=== PATIENT | male | born 1940 | race Caucasian/White ===

== ENCOUNTER 2017-09-14 13:13 | Inpatient (IN) | payer OTHER, MEDICARE ==
[~2017-09-14] VITALS: Ht 154.9 cm; Wt 100.0 kg
[~2017-09-14 13:13] MED LIST: BUSP10TA11 PO; CARV25TA PO; COU5T PO; GLIP-126 PO; LISI10TA4 PO; ZOLP10TA5 PO
[2017-09-14] MEDS ORDERED: normal saline 1000ML IV soln IV ONE (13:40)
[2017-09-14 14:01] LABS: BASOPHILS % (AUTO) 0.1 % (0-1); EOSINOPHILS % (AUTO) 0.5 % (0-6); HEMATOCRIT 42.9 % (42.0-52.0); HEMOGLOBIN 14.8 g/dl (14.0-17.9); LYMPHOCYTES # (AUTO) 0.6 X10'3 (1.1-4.8); LYMPHOCYTES % (AUTO) 8.8 % (21-51); MEAN CORPUSCULAR HEMOGLOBIN 31.9 PG (27.0-31.0); MEAN CORPUSCULAR HGB CONC 34.4 % (33.0-36.5); MEAN CORPUSCULAR VOLUME 92.7 FL (78-98); MEAN PLATELET VOLUME 7.4 FL (7.4-10.4); MONOCYTES # (AUTO) 0.5 X10'3 (0-0.9); MONOCYTES % (AUTO) 7.2 % (2-12); NEUTROPHILS % (AUTO) 83.4 % (42-75); PLATELET COUNT 111 X10'3 (140-440); RED BLOOD COUNT 4.63 X10'6 (4.70-6.10); WHITE BLOOD COUNT 7.2 X10'3 (4.5-11.0)
[2017-09-14 14:12] LABS: INR 1.2 INR; PARTIAL THROMBOPLASTIN TIME 31 SECONDS (22-32); PROTHROMBIN TIME 12.4 SECONDS (9.0-12.0)
[2017-09-14 14:24] LABS: ALANINE AMINOTRANSFERASE 17 U/L (12-78); ALBUMIN 3.9 G/DL (3.4-5.0); ALBUMIN/GLOBULIN RATIO 1.1 (1.1-1.5); ALKALINE PHOSPHATASE 77 IU/L (46-116); ANION GAP 8 (8-16); ASPARTATE AMINO TRANSFERASE 18 U/L (10-37); BILIRUBIN,TOTAL 3.7 MG/DL (0.1-1.0); BLOOD UREA NITROGEN 17 MG/DL (7-18); BUN/CREATININE RATIO 12.1 (5.4-32.0); CALCIUM 7.8 MG/DL (8.5-10.1); CHLORIDE 95 MMOL/L (99-107); CREATININE 1.41 MG/DL (0.60-1.10); MAGNESIUM 1.9 MG/DL (1.5-2.4); POTASSIUM 4.9 MMOL/L (3.5-5.1); SODIUM 128 MMOL/L (135-145); TOTAL CARBON DIOXIDE 24.7 MMOL/L (24-32); TOTAL PROTEIN 7.4 G/DL (6.4-8.2); eGFR 49 ML/MIN
[2017-09-14 14:25] LABS: GLUCOSE 197 MG/DL (70-104)
[2017-09-14] MEDS ORDERED: normal saline 1000ml 1,000 ML IV ONE ×2 (15:20)
[2017-09-14 15:42] LABS: CLARITY,URINE CLEAR (Clear); COLOR,URINE YELLOW (Yellow); GLUCOSE, URINE 100 mg/dl (Neg); KETONES,URINE 15 mg/dl (Neg); LEUKOCYTE ESTERASE ,URINE NEGATIVE (Neg); NITRITES, URINE NEGATIVE (Neg); OCCULT BLOOD,URINE LARGE (Neg); PH,URINE 6.5 (4.8-8.0); PROTEIN,URINE 100 mg/dl (Neg); UA COLLECTION TYPE CLN CATCH MIDSTREAM
[2017-09-14 15:48] LABS: BACTERIA,URINE FEW /HPF (Neg); HYALINE CASTS 0-3 /LPF (NEGATIVE); MUCUS STRANDS FEW /LPF (Neg); RBC,URINE 50-100 /HPF (0-2); SQUAMOUS EPITHELIAL CELL,UR FEW /LPF (FEW); TRANSITIONAL EPI CELLS,URINE FEW /HPF; WBC,URINE 0-4 /HPF (0-4)
[2017-09-14] MEDS ORDERED: ipratropium/albuterol 3ml nebule NEB ONE ×2 (16:05→18:20)
[2017-09-14] MEDS ORDERED: CefTRIAXone/D5W-Rocephin 1gm 50 ML IV ONE (16:20)
[2017-09-14] MEDS ORDERED: non-formulary drug (Zolpidem Tartrate* (Ambien*) 1 TAB) PO PRN (17:40)
[2017-09-14] MEDS ORDERED: dextrose ORAL solution 15 GM/59 ML bottle PO PRN ×2 (17:45)
[2017-09-14] MEDS ORDERED: potassium Cl 40MEQ/NS 500ml 500 ML IV PRN ×2 (17:45)
[2017-09-14] MEDS ORDERED: ondansetron/PF 4mg/2ml inj IV PRN (17:45)
[2017-09-14] MEDS ORDERED: MORPHINE 2MG in 2ml NS syringe IV PRN (17:45)
[2017-09-14] MEDS ORDERED: MESSAGE TO PHARMACY PO ONE (17:45)
[2017-09-14] MEDS ORDERED: glucagon, human recombinant 1mg kit SUBCUT PRN (17:45)
[2017-09-14] MEDS ORDERED: potassium Cl 20 mEq SR tablet PO PRN ×2 (17:45)
[2017-09-14] MEDS ORDERED: magnesium hydroxide 30ml (MOM) UD suspension PO PRN (17:45)
[2017-09-14] MEDS ORDERED: magnesium 2GM in 50ml NS 50 ML IV PRN (17:45)
[2017-09-14] MEDS ORDERED: zolpidem 5mg tablet PO PRN (17:45)
[2017-09-14] MEDS ORDERED: dextrose 50%-water 50ml dispensing syringe IV PRN ×2 (17:45)
[2017-09-14] MEDS ORDERED: acetaminophen 325mg tablet PO PRN (17:45)
[2017-09-14] MEDS ORDERED: magnesium Cl slow-release 64mg tablet PO PRN (17:45)
[2017-09-14] MEDS ORDERED: HYDROcodone/acetaminophen 5mg/325mg tablet PO PRN (17:45)
[2017-09-14] MEDS ORDERED: mag hydrox/Alum hydrox/simeth 30ml oral suspension PO PRN (17:45)
[2017-09-14] MEDS ORDERED: magnesium 4gm in 100ml NS 100 ML IV PRN (17:45)
[2017-09-14] MEDS ORDERED: methylPREDNISolone sod succ 125mg/2ml vial IV ONE (19:05)
[2017-09-14] MEDS: carVEDilol 12.5mg tablet PO SCH (19:39)
[2017-09-14] MEDS: busPIRone 15mg tablet PO SCH (19:39)
[2017-09-14] MEDS ORDERED: non-formulary drug (Carvedilol (Coreg) 1 TAB) PO SCH (20:00)
[2017-09-14] MEDS ORDERED: BUSPIRONE HCL PO SCH (20:00)
[2017-09-14] MEDS: insulin glargine (Lantus) pen - multi-dose SQ SCH (21:00)
[2017-09-14] MEDS ORDERED: temazepam 15mg capsule PO PRN (21:00)
[2017-09-14 21:24] LABS: HEMOGLOBIN A1C 6.6 % (4.5-6.2)
[2017-09-14] MEDS: albuterol 2.5 MG/3 ML nebule NEB PRN (23:12)
[2017-09-15 02:02] LABS: INR 1.2 INR; PROTHROMBIN TIME 12.4 SECONDS (9.0-12.0)
[2017-09-15 02:05] LABS: BASOPHILS % (AUTO) 0.2 % (0-1); EOSINOPHILS % (AUTO) 0 % (0-6); HEMATOCRIT 40.2 % (42.0-52.0); HEMOGLOBIN 13.9 g/dl (14.0-17.9); LYMPHOCYTES # (AUTO) 0.6 X10'3 (1.1-4.8); LYMPHOCYTES % (AUTO) 9.6 % (21-51); MEAN CORPUSCULAR HEMOGLOBIN 32.5 PG (27.0-31.0); MEAN CORPUSCULAR HGB CONC 34.7 % (33.0-36.5); MEAN CORPUSCULAR VOLUME 93.7 FL (78-98); MEAN PLATELET VOLUME 7.6 FL (7.4-10.4); MONOCYTES # (AUTO) 0.2 X10'3 (0-0.9); MONOCYTES % (AUTO) 2.8 % (2-12); NEUTROPHILS # (AUTO) 5.6 X10'3 (1.8-7.7); NEUTROPHILS % (AUTO) 87.4 % (42-75); PLATELET COUNT 102 X10'3 (140-440); RED BLOOD COUNT 4.29 X10'6 (4.70-6.10); RED CELL DISTRIBUTION WIDTH 13.6 % (11.5-14.5); WHITE BLOOD COUNT 6.4 X10'3 (4.5-11.0)
[2017-09-15 02:11] LABS: ALBUMIN 3.6 G/DL (3.4-5.0); ANION GAP 11 (8-16); BLOOD UREA NITROGEN 19 MG/DL (7-18); BUN/CREATININE RATIO 14.8 (5.4-32.0); CALCIUM 7.6 MG/DL (8.5-10.1); CHLORIDE 97 MMOL/L (99-107); CREATININE 1.28 MG/DL (0.60-1.10); POTASSIUM 4.2 MMOL/L (3.5-5.1); SODIUM 130 MMOL/L (135-145); TOTAL CARBON DIOXIDE 22.1 MMOL/L (24-32); eGFR 54 ML/MIN
[2017-09-15 02:12] LABS: GLUCOSE 224 MG/DL (70-104)
[2017-09-15] MEDS: albuterol 2.5 MG/3 ML nebule NEB PRN ×4 (02:13→21:44)
[2017-09-15 07:00] VITALS: BP 149/85
[2017-09-15] MEDS ORDERED: warfarin 5mg tablet PO SCH ×2 (08:00→21:00)
[2017-09-15] MEDS: K and/or MAG REPLACEMENT MC SCH (08:00)
[2017-09-15] MEDS: busPIRone 15mg tablet PO SCH ×2 (08:00→16:34)
[2017-09-15] MEDS: carVEDilol 12.5mg tablet PO SCH ×3 (08:08→19:49)
[2017-09-15] MEDS: CefTRIAXone/D5W-Rocephin 1gm 50 ML IV SCH (08:08)
[2017-09-15] MEDS: insulin Lispro (HumaLOG) vial - multi-dose SQ SCH ×3 (09:12→19:46)
[2017-09-15] MEDS ORDERED: APIX5TAB3 PO ×3 (10:06→15:44)
[2017-09-15] MEDS ORDERED: ALB0.5UD IH (10:06)
[2017-09-15] MEDS ORDERED: SPIR25TA3 PO (10:06)
[2017-09-15] MEDS ORDERED: LOPE2CAP PO (10:06)
[2017-09-15] MEDS ORDERED: CARV-50 PO (10:06)
[2017-09-15 11:00] VITALS: BP 120/75
[2017-09-15 15:00] VITALS: BP 123/69
[2017-09-15] MEDS ORDERED: non-formulary drug (Albuterol Sulfate Nebs* (Proventil Nebs*) 2.5 MG) IH PRN (16:30)
[2017-09-15 18:00] VITALS: BP 135/71
[2017-09-15] MEDS: apixaban 5mg tablet PO SCH (19:49)
[2017-09-15] MEDS: lactobacillus rhamnosus 10,000 MMU CELLS/CAPSULE PO SCH (19:49)
[2017-09-15] MEDS: insulin glargine (Lantus) pen - multi-dose SQ SCH (21:36)
[2017-09-15 22:00] VITALS: BP 139/70
[2017-09-16 02:00] VITALS: BP 135/80
[2017-09-16 05:42] LABS: BASOPHILS % (AUTO) 0.2 % (0-1); EOSINOPHILS # (AUTO) 0.1 X10'3 (0-0.9); HEMATOCRIT 38.6 % (42.0-52.0); HEMOGLOBIN 13.4 g/dl (14.0-17.9); LYMPHOCYTES # (AUTO) 1.3 X10'3 (1.1-4.8); LYMPHOCYTES % (AUTO) 11.7 % (21-51); MEAN CORPUSCULAR HEMOGLOBIN 32.3 PG (27.0-31.0); MEAN CORPUSCULAR HGB CONC 34.8 % (33.0-36.5); MEAN CORPUSCULAR VOLUME 92.9 FL (78-98); MEAN PLATELET VOLUME 7.6 FL (7.4-10.4); NEUTROPHILS # (AUTO) 8.4 X10'3 (1.8-7.7); NEUTROPHILS % (AUTO) 78.1 % (42-75); PLATELET COUNT 141 X10'3 (140-440); RED BLOOD COUNT 4.16 X10'6 (4.70-6.10); RED CELL DISTRIBUTION WIDTH 13.7 % (11.5-14.5); WHITE BLOOD COUNT 10.8 X10'3 (4.5-11.0)
[2017-09-16 05:47] LABS: INR 1.1 INR; PROTHROMBIN TIME 11.6 SECONDS (9.0-12.0)
[2017-09-16 05:50] LABS: ALBUMIN 3.5 G/DL (3.4-5.0); ANION GAP 9 (8-16); BLOOD UREA NITROGEN 29 MG/DL (7-18); BUN/CREATININE RATIO 24.8 (5.4-32.0); CALCIUM 8.2 MG/DL (8.5-10.1); CHLORIDE 95 MMOL/L (99-107); CREATININE 1.17 MG/DL (0.60-1.10); GLUCOSE 148 MG/DL (70-104); MAGNESIUM 2.2 MG/DL (1.5-2.4); POTASSIUM 4.1 MMOL/L (3.5-5.1); SODIUM 129 MMOL/L (135-145); TOTAL CARBON DIOXIDE 24.6 MMOL/L (24-32); eGFR 60 ML/MIN
[2017-09-16] MEDS: K and/or MAG REPLACEMENT MC SCH (08:00)
[2017-09-16] MEDS: spironolactone 25 MG tablet PO SCH (08:22)
[2017-09-16] MEDS: lactobacillus rhamnosus 10,000 MMU CELLS/CAPSULE PO SCH ×2 (08:22→21:04)
[2017-09-16] MEDS: CefTRIAXone/D5W-Rocephin 1gm 50 ML IV SCH (08:22)
[2017-09-16] MEDS: apixaban 5mg tablet PO SCH ×2 (08:22→21:04)
[2017-09-16] MEDS: carVEDilol 12.5mg tablet PO SCH ×2 (08:24→21:04)
[2017-09-16] MEDS: insulin Lispro (HumaLOG) vial - multi-dose SQ SCH ×2 (08:58→13:45)
[2017-09-16] MEDS: albuterol 2.5 MG/3 ML nebule NEB PRN ×3 (09:11→20:25)
[2017-09-16] MEDS ORDERED: ZOLP10TA PO (09:24)
[2017-09-16 11:00] VITALS: BP 138/64
[2017-09-16] MEDS: loperamide 2mg capsule PO PRN ×2 (11:03→21:04)
[2017-09-16 17:06] VITALS: BP 128/70
[2017-09-16 19:00] VITALS: BP 91/55
[2017-09-16] MEDS ORDERED: morphine 4 MG/ML inj SYRINge IV PRN (19:54)
[2017-09-16] MEDS: insulin glargine (Lantus) pen - multi-dose SQ SCH (21:08)
[2017-09-16 23:00] VITALS: BP 124/63
[2017-09-17 03:00] VITALS: BP 134/82
[2017-09-17 06:00] VITALS: BP 113/77
[2017-09-17 06:10] LABS: BASOPHILS % (AUTO) 0.1 % (0-1); EOSINOPHILS # (AUTO) 0.1 X10'3 (0-0.9); EOSINOPHILS % (AUTO) 1.9 % (0-6); HEMATOCRIT 36.9 % (42.0-52.0); HEMOGLOBIN 12.9 g/dl (14.0-17.9); LYMPHOCYTES # (AUTO) 1.9 X10'3 (1.1-4.8); MEAN CORPUSCULAR HEMOGLOBIN 31.8 PG (27.0-31.0); MEAN CORPUSCULAR HGB CONC 34.8 % (33.0-36.5); MEAN CORPUSCULAR VOLUME 91.3 FL (78-98); MEAN PLATELET VOLUME 7.4 FL (7.4-10.4); MONOCYTES # (AUTO) 0.7 X10'3 (0-0.9); NEUTROPHILS # (AUTO) 3.3 X10'3 (1.8-7.7); PLATELET COUNT 127 X10'3 (140-440); RED BLOOD COUNT 4.04 X10'6 (4.70-6.10)
[2017-09-17 06:18] LABS: INR 1.1 INR; PROTHROMBIN TIME 11.5 SECONDS (9.0-12.0)
[2017-09-17 06:40] LABS: ALBUMIN 3.2 G/DL (3.4-5.0); ANION GAP 8 (8-16); BLOOD UREA NITROGEN 23 MG/DL (7-18); BUN/CREATININE RATIO 20.7 (5.4-32.0); CALCIUM 7.8 MG/DL (8.5-10.1); CHLORIDE 99 MMOL/L (99-107); CREATININE 1.11 MG/DL (0.60-1.10); POTASSIUM 4.1 MMOL/L (3.5-5.1); SODIUM 133 MMOL/L (135-145); TOTAL CARBON DIOXIDE 26.5 MMOL/L (24-32); eGFR 64 ML/MIN
[2017-09-17 06:41] LABS: GLUCOSE 99 MG/DL (70-104)
[2017-09-17] MEDS: K and/or MAG REPLACEMENT MC SCH (08:00)
[2017-09-17] MEDS: apixaban 5mg tablet PO SCH (08:34)
[2017-09-17] MEDS: carVEDilol 12.5mg tablet PO SCH (08:34)
[2017-09-17] MEDS: lactobacillus rhamnosus 10,000 MMU CELLS/CAPSULE PO SCH (08:34)
[2017-09-17] MEDS: spironolactone 25 MG tablet PO SCH (08:35)
[2017-09-17] MEDS: CefTRIAXone/D5W-Rocephin 1gm 50 ML IV SCH (08:59)
[2017-09-17] MEDS: insulin Lispro (HumaLOG) vial - multi-dose SQ SCH (10:10)
[2017-09-17 11:00] VITALS: BP 108/57
[2017-09-17] MEDS: albuterol 2.5 MG/3 ML nebule NEB PRN (12:34)
[2017-09-17] MEDS ORDERED: PRED10TA23 PO (13:07)
[2017-09-17] MEDS ORDERED: LEVO500T2 PO (13:07)
== END 2017-09-17 14:45 | disposition home or self-care (01) | DRG 193 ==
LOC: ER 13:14 → ED HOLD 17:45 → PCU 3S 09-15 07:05
PROVIDERS: ADMIT Internal Medicine; ATTEND Internal Medicine
DX: J15.9 Unspecified bacterial pneumonia (principal); J96.01 Acute respiratory failure with hypoxia; N17.9 Acute kidney failure, unspecified; E11.22 Type 2 diabetes mellitus with diabetic chronic kidney disease; R16.1 Splenomegaly, not elsewhere classified; E87.1 Hypo-osmolality and hyponatremia; I13.0 Hypertensive heart and chronic kidney disease with heart failure and stage 1 through stage 4 chronic kidney disease, or unspecified chronic kidney disease; J44.0 Chronic obstructive pulmonary disease with (acute) lower respiratory infection; J44.1 Chronic obstructive pulmonary disease with (acute) exacerbation; M48.56XA Collapsed vertebra, not elsewhere classified, lumbar region, initial encounter for fracture; I50.9 Heart failure, unspecified; N18.9 Chronic kidney disease, unspecified; F41.9 Anxiety disorder, unspecified; I48.0 Paroxysmal atrial fibrillation; D64.9 Anemia, unspecified; F32.9 Major depressive disorder, single episode, unspecified; G89.4 Chronic pain syndrome; I25.10 Atherosclerotic heart disease of native coronary artery without angina pectoris; K57.30 Diverticulosis of large intestine without perforation or abscess without bleeding; Z95.0 Presence of cardiac pacemaker; Z79.01 Long term (current) use of anticoagulants; Z88.8 Allergy status to other drugs, medicaments and biological substances; Z86.73 Personal history of transient ischemic attack (TIA), and cerebral infarction without residual deficits
CPT/HCPCS: 36415; 71045; 71250; 74176; 76775; 80048; 80053; 81001; 82948; 83036; 83605; 83735; 83880; 84145; 84484; 85025; 85610; 85730; 87040; 87070; 87502; 87503; 93005; 94640; 94760; 96361; 96365; 99285; A6213; J0696; J1815; J2930; J7030

== ENCOUNTER 2018-06-20 08:15 | Emergency (ER) | payer MEDICARE, OTHER ==
[~2018-06-20] VITALS: Ht 185.4 cm; Wt 102.0 kg
[~2018-06-20 08:15] MED LIST changes: +ALB0.5UD IH; +APIX5TAB3 PO; -BUSP10TA11 PO; +CARV-50 PO; -COU5T PO; -GLIP-126 PO; -LISI10TA4 PO; +LOPE2CAP PO; +SPIR25TA5 PO; +ZOLP10TA PO; -ZOLP10TA5 PO
[2018-06-20 08:22] VITALS: BP 126/81
[2018-06-20 09:35] LABS: BASOPHILS % (AUTO) 0.4 % (0-1); EOSINOPHILS # (AUTO) 0.1 X10'3 (0-0.9); EOSINOPHILS % (AUTO) 1.4 % (0-6); HEMATOCRIT 39.9 % (42.0-52.0); HEMOGLOBIN 13.6 g/dl (14.0-17.9); LYMPHOCYTES # (AUTO) 1.3 X10'3 (1.1-4.8); LYMPHOCYTES % (AUTO) 20.5 % (21-51); MEAN CORPUSCULAR HEMOGLOBIN 31.5 PG (27.0-31.0); MEAN CORPUSCULAR HGB CONC 34.2 % (33.0-36.5); MEAN CORPUSCULAR VOLUME 92.2 FL (78-98); MEAN PLATELET VOLUME 7.8 FL (7.4-10.4); MONOCYTES # (AUTO) 0.6 X10'3 (0-0.9); MONOCYTES % (AUTO) 9.8 % (2-12); NEUTROPHILS # (AUTO) 4.4 X10'3 (1.8-7.7); NEUTROPHILS % (AUTO) 67.9 % (42-75); PLATELET COUNT 157 X10'3 (140-440); RED BLOOD COUNT 4.33 X10'6 (4.70-6.10); RED CELL DISTRIBUTION WIDTH 13.1 % (11.5-14.5); WHITE BLOOD COUNT 6.4 X10'3 (4.5-11.0)
[2018-06-20 09:40] LABS: ALANINE AMINOTRANSFERASE 12 U/L (12-78); ALBUMIN 3.6 G/DL (3.4-5.0); ALBUMIN/GLOBULIN RATIO 1.3 (1.1-1.5); ALKALINE PHOSPHATASE 69 IU/L (46-116); ANION GAP 10 (8-16); ASPARTATE AMINO TRANSFERASE 15 U/L (10-37); BILIRUBIN,TOTAL 2.4 MG/DL (0.1-1.0); BLOOD UREA NITROGEN 16 MG/DL (7-18); BUN/CREATININE RATIO 15.5 (5.4-32.0); CALCIUM 8.1 MG/DL (8.5-10.1); CHLORIDE 95 MMOL/L (99-107); CREATININE 1.03 MG/DL (0.60-1.10); POTASSIUM 4.5 MMOL/L (3.5-5.1); SODIUM 127 MMOL/L (135-145); TOTAL CARBON DIOXIDE 21.9 MMOL/L (24-32); TOTAL PROTEIN 6.3 G/DL (6.4-8.2); eGFR 70 ML/MIN
[2018-06-20 09:41] LABS: GLUCOSE 169 MG/DL (70-104)
[2018-06-20 10:07] LABS: INR 1.2 INR; PARTIAL THROMBOPLASTIN TIME 32 SECONDS (22-32); PROTHROMBIN TIME 12.2 SECONDS (9.0-12.0)
== END 2018-06-20 10:28 | disposition left against medical advice (07) ==
LOC: ER 08:16
DX: R07.89 Other chest pain (principal); E87.1 Hypo-osmolality and hyponatremia; I11.0 Hypertensive heart disease with heart failure; I50.9 Heart failure, unspecified; J44.9 Chronic obstructive pulmonary disease, unspecified; E11.9 Type 2 diabetes mellitus without complications; G89.29 Other chronic pain; Z86.73 Personal history of transient ischemic attack (TIA), and cerebral infarction without residual deficits; Z95.0 Presence of cardiac pacemaker; Z88.6 Allergy status to analgesic agent; Z79.899 Other long term (current) drug therapy; Z87.891 Personal history of nicotine dependence
CPT/HCPCS: 36415; 71045; 80053; 84484; 85025; 85610; 85730; 93005; 99284

== ENCOUNTER 2019-08-29 14:18 | Emergency (ER) | payer MEDICARE, OTHER ==
[~2019-08-29] VITALS: Ht 185.4 cm; Wt 100.0 kg
[2019-08-29] MEDS ORDERED: ipratropium/albuterol 3ml nebule NEB ONE (14:35)
[2019-08-29] MEDS ORDERED: methylPREDNISolone sod succ 125mg/2ml vial IV ONE (14:35)
[2019-08-29 14:47] LABS: BASOPHILS % (AUTO) 0.3 % (0-1); EOSINOPHILS # (AUTO) 0.1 X10'3 (0-0.9); EOSINOPHILS % (AUTO) 1.8 % (0-6); HEMATOCRIT 42.4 % (42.0-52.0); HEMOGLOBIN 14.6 g/dl (14.0-17.9); LYMPHOCYTES % (AUTO) 14.6 % (21-51); MEAN CORPUSCULAR HEMOGLOBIN 31.8 PG (27.0-31.0); MEAN CORPUSCULAR HGB CONC 34.4 g/dL (33.0-36.5); MEAN CORPUSCULAR VOLUME 92.6 FL (78-98); MEAN PLATELET VOLUME 7.1 FL (7.4-10.4); MONOCYTES # (AUTO) 0.9 X10'3 (0-0.9); MONOCYTES % (AUTO) 13.7 % (2-12); NEUTROPHILS # (AUTO) 4.6 X10'3 (1.8-7.7); NEUTROPHILS % (AUTO) 69.6 % (42-75); PLATELET COUNT 116 X10'3 (140-440); RED BLOOD COUNT 4.58 X10'6 (4.70-6.10); RED CELL DISTRIBUTION WIDTH 13.3 % (11.5-14.5); WHITE BLOOD COUNT 6.6 X10'3 (4.5-11.0)
[2019-08-29 15:04] LABS: PARTIAL THROMBOPLASTIN TIME 35 SECONDS (22-32)
[2019-08-29 15:10] LABS: ALANINE AMINOTRANSFERASE 13 U/L (12-78); ALBUMIN/GLOBULIN RATIO 1.3 (1.1-1.5); ALKALINE PHOSPHATASE 67 IU/L (46-116); ANION GAP 8 (8-16); ASPARTATE AMINO TRANSFERASE 16 U/L (10-37); BILIRUBIN,TOTAL 2.1 MG/DL (0.1-1.0); BLOOD UREA NITROGEN 22 MG/DL (7-18); BUN/CREATININE RATIO 16.8 (5.4-32.0); CALCIUM 8.6 MG/DL (8.5-10.1); CHLORIDE 95 MMOL/L (99-107); CREATININE 1.31 MG/DL (0.60-1.10); GLUCOSE 138 MG/DL (70-104); SODIUM 127 MMOL/L (135-145); TOTAL CARBON DIOXIDE 24.3 MMOL/L (24-32); TOTAL PROTEIN 7.1 G/DL (6.4-8.2); eGFR 53 ML/MIN
[2019-08-29] MEDS ORDERED: furosemide 10 MG/1 ML 10ml inj IV ONE (15:35)
[2019-08-29 16:27] VITALS: BP 142/70
== END 2019-08-29 16:28 | disposition home or self-care (01) ==
LOC: ER 14:18
DX: J44.1 Chronic obstructive pulmonary disease with (acute) exacerbation (principal); I50.9 Heart failure, unspecified; R53.1 Weakness; E87.1 Hypo-osmolality and hyponatremia; I11.0 Hypertensive heart disease with heart failure; E11.9 Type 2 diabetes mellitus without complications; G89.29 Other chronic pain; F41.9 Anxiety disorder, unspecified; Z87.891 Personal history of nicotine dependence; Z95.0 Presence of cardiac pacemaker; Z98.890 Other specified postprocedural states; Z88.6 Allergy status to analgesic agent; Z88.8 Allergy status to other drugs, medicaments and biological substances; Z79.01 Long term (current) use of anticoagulants; Z79.899 Other long term (current) drug therapy
CPT/HCPCS: 36415; 71045; 80053; 83880; 84484; 85025; 85610; 85730; 87502; 87503; 93005; 94640; 96374; 96375; 99285; J1940; J2930; 94760

== ENCOUNTER 2021-08-31 08:01 | Emergency (ER) | payer OTHER, MEDICARE ==
[~2021-08-31] VITALS: Ht 185.4 cm; Wt 95.0 kg
[~2021-08-31 08:01] MED LIST changes: -ALB0.5UD IH; +ALBU8.5H17 IH; +ALOG12.5 PO; +BUDE10.2 INH; -CARV-50 PO; +CHOL100046 PO; +FLO0.4C PO; +HYDR-4383 PO; -LOPE2CAP PO; -ZOLP10TA PO
[2021-08-31] MEDS ORDERED: ipratropium/albuterol 3ml nebule NEB ONE (08:45)
[2021-08-31 09:07] LABS: BASOPHILS % (AUTO) 0.3 % (0-1); EOSINOPHILS # (AUTO) 0.1 X10'3 (0-0.9); EOSINOPHILS % (AUTO) 1.2 % (0-6); HEMATOCRIT 35.3 % (42.0-52.0); LYMPHOCYTES # (AUTO) 0.9 X10'3 (1.1-4.8); LYMPHOCYTES % (AUTO) 19.2 % (21-51); MEAN CORPUSCULAR HEMOGLOBIN 31.3 PG (27.0-31.0); MEAN CORPUSCULAR VOLUME 92.1 FL (78-98); MEAN PLATELET VOLUME 7.7 FL (7.4-10.4); MONOCYTES # (AUTO) 0.4 X10'3 (0-0.9); NEUTROPHILS # (AUTO) 3.4 X10'3 (1.8-7.7); NEUTROPHILS % (AUTO) 71.3 % (42-75); PLATELET COUNT 116 X10'3 (140-440); RED BLOOD COUNT 3.83 X10'6 (4.70-6.10); RED CELL DISTRIBUTION WIDTH 14.7 % (11.5-14.5); WHITE BLOOD COUNT 4.8 X10'3 (4.5-11.0)
[2021-08-31 09:34] LABS: ALANINE AMINOTRANSFERASE 14 U/L (12-78); CREATININE 1.01 MG/DL (0.60-1.10); eGFR 71 ML/MIN
[2021-08-31 09:36] LABS: BILIRUBIN,TOTAL 4.3 MG/DL (0.1-1.0); BLOOD UREA NITROGEN 20 MG/DL (7-18); BUN/CREATININE RATIO 19.8 (5.4-32.0); CALCIUM 8.1 MG/DL (8.5-10.1); GLUCOSE 226 MG/DL (70-104); TOTAL CARBON DIOXIDE 26.9 MMOL/L (24-32)
[2021-08-31 09:37] LABS: TOTAL PROTEIN 7.3 G/DL (6.4-8.2)
[2021-08-31 09:38] LABS: ALBUMIN 3.9 G/DL (3.4-5.0); ALBUMIN/GLOBULIN RATIO 1.1 (1.1-1.5); ALKALINE PHOSPHATASE 76 IU/L (46-116); ASPARTATE AMINO TRANSFERASE 15 U/L (10-37)
[2021-08-31] MEDS ORDERED: ALBU8.5H17 IH ×3 (11:05→11:30)
[2021-08-31 11:15] VITALS: BP 133/83
--- NOTE | 2021-08-31 11:15 | NUR ---
Pt given and understands d/c instructions. Escorted out of the department via wheelchair.
[2021-08-31 14:27] LABS: POTASSIUM 4.3 MMOL/L (3.3-5.1)
== END 2021-08-31 11:15 | disposition home or self-care (01) ==
LOC: ER 08:02
DX: J44.9 Chronic obstructive pulmonary disease, unspecified (principal); Z20.822 Contact with and (suspected) exposure to COVID-19; I48.91 Unspecified atrial fibrillation; Z95.0 Presence of cardiac pacemaker; I50.9 Heart failure, unspecified; I11.0 Hypertensive heart disease with heart failure; Z86.73 Personal history of transient ischemic attack (TIA), and cerebral infarction without residual deficits; E11.9 Type 2 diabetes mellitus without complications; G89.29 Other chronic pain; Z87.891 Personal history of nicotine dependence; Z88.8 Allergy status to other drugs, medicaments and biological substances; Z79.899 Other long term (current) drug therapy
CPT/HCPCS: 36415; 71045; 80051; 80053; 83735; 83880; 84145; 84484; 85025; 85610; 87635; 93005; 94640; 99285; C9803; 94760

== ENCOUNTER 2021-11-05 09:55 | Emergency (ER) | payer OTHER, MEDICARE ==
[~2021-11-05] VITALS: Ht 185.4 cm; Wt 89.5 kg
[2021-11-05] MEDS ORDERED: aspirin 81mg tab.chew PO ONE (10:45)
--- NOTE | 2021-11-05 10:45 | NUR ---
CRISTHIAN reported to me that pt was still feeling sick when she went to d/c pt and Dr. Brody was notified at that time. Awaiting further orders.
[2021-11-05 11:07] LABS: BASOPHILS % (AUTO) 0.5 % (0-1); EOSINOPHILS # (AUTO) 0.1 X10'3 (0-0.9); EOSINOPHILS % (AUTO) 3.3 % (0-6); HEMATOCRIT 35.8 % (42.0-52.0); HEMOGLOBIN 11.9 g/dl (14.0-17.9); LYMPHOCYTES # (AUTO) 0.9 X10'3 (1.1-4.8); LYMPHOCYTES % (AUTO) 20.5 % (21-51); MEAN CORPUSCULAR HEMOGLOBIN 30.5 PG (27.0-31.0); MEAN CORPUSCULAR HGB CONC 33.3 g/dL (33.0-36.5); MEAN CORPUSCULAR VOLUME 91.5 FL (78-98); MEAN PLATELET VOLUME 7.8 FL (7.4-10.4); MONOCYTES # (AUTO) 0.5 X10'3 (0-0.9); MONOCYTES % (AUTO) 10.5 % (2-12); NEUTROPHILS # (AUTO) 2.9 X10'3 (1.8-7.7); NEUTROPHILS % (AUTO) 65.2 % (42-75); PLATELET COUNT 117 X10'3 (140-440); RED BLOOD COUNT 3.91 X10'6 (4.70-6.10); RED CELL DISTRIBUTION WIDTH 14.1 % (11.5-14.5); WHITE BLOOD COUNT 4.4 X10'3 (4.5-11.0)
[2021-11-05 11:21] LABS: ALANINE AMINOTRANSFERASE 13 U/L (12-78); ALBUMIN 3.8 G/DL (3.4-5.0); ALKALINE PHOSPHATASE 92 IU/L (46-116); ANION GAP 9 (8-16); BLOOD UREA NITROGEN 16 MG/DL (7-18); BUN/CREATININE RATIO 14.4 (5.4-32.0); CALCIUM 8.1 MG/DL (8.5-10.1); CHLORIDE 98 MMOL/L (99-107); CREATININE 1.11 MG/DL (0.60-1.10); POTASSIUM 4.5 MMOL/L (3.5-5.1); SODIUM 132 MMOL/L (135-145); TOTAL CARBON DIOXIDE 25.5 MMOL/L (24-32); eGFR 63 ML/MIN
[2021-11-05 11:25] LABS: MAGNESIUM 2.1 MG/DL (1.5-2.4)
[2021-11-05 11:26] LABS: ALBUMIN/GLOBULIN RATIO 1.1 (1.1-1.5); ASPARTATE AMINO TRANSFERASE 14 U/L (10-37); BILIRUBIN,TOTAL 3.2 MG/DL (0.1-1.0); GLUCOSE 203 MG/DL (70-104); TOTAL PROTEIN 7.3 G/DL (6.4-8.2)
[2021-11-05 11:58] LABS: D-DIMER 0.49 MG/L FEU (0-0.50)
[2021-11-05] MEDS ORDERED: albuterol 2.5 MG/3 ML nebule NEB ONE (12:25)
--- NOTE | 2021-11-05 13:16 | NUR ---
patient asking for food, ordered heart healthy meal tray.
[2021-11-05 14:03] VITALS: BP 148/80
== END 2021-11-05 14:00 | disposition home or self-care (01) ==
LOC: ER 09:56
DX: J98.11 Atelectasis (principal); J20.9 Acute bronchitis, unspecified; R06.02 Shortness of breath; M54.89 Other dorsalgia; I11.0 Hypertensive heart disease with heart failure; I50.9 Heart failure, unspecified; J44.9 Chronic obstructive pulmonary disease, unspecified; E11.9 Type 2 diabetes mellitus without complications; G89.29 Other chronic pain; F41.9 Anxiety disorder, unspecified; Z86.73 Personal history of transient ischemic attack (TIA), and cerebral infarction without residual deficits; Z95.0 Presence of cardiac pacemaker; Z98.890 Other specified postprocedural states; Z88.6 Allergy status to analgesic agent; Z88.8 Allergy status to other drugs, medicaments and biological substances; Z79.899 Other long term (current) drug therapy
CPT/HCPCS: 36415; 71045; 80053; 83735; 83880; 84484; 85025; 85379; 93005; 94640; 94760; 99285

== ENCOUNTER 2022-05-26 07:12 | Inpatient (IN) | payer OTHER, MEDICARE ==
[~2022-05-26] VITALS: Ht 185.4 cm; Wt 89.5 kg
[2022-05-26] MEDS ORDERED: ipratropium/albuterol 3ml nebule NEB ONE (08:55)
[2022-05-26] MEDS ORDERED: albuterol 2.5 MG/3 ML nebule NEB ONE (08:55)
[2022-05-26 09:17] LABS: BASOPHILS % (AUTO) 0.4 % (0-1); EOSINOPHILS # (AUTO) 0.1 X10'3 (0-0.9); EOSINOPHILS % (AUTO) 2.3 % (0-6); HEMATOCRIT 36.2 % (42.0-52.0); LYMPHOCYTES # (AUTO) 0.8 X10'3 (1.1-4.8); LYMPHOCYTES % (AUTO) 17.1 % (21-51); MEAN CORPUSCULAR HEMOGLOBIN 31.8 PG (27.0-31.0); MEAN CORPUSCULAR VOLUME 96.3 FL (78-98); MEAN PLATELET VOLUME 8.4 FL (7.4-10.4); MONOCYTES # (AUTO) 0.4 X10'3 (0-0.9); MONOCYTES % (AUTO) 9.4 % (2-12); NEUTROPHILS # (AUTO) 3.2 X10'3 (1.8-7.7); NEUTROPHILS % (AUTO) 70.8 % (42-75); PLATELET COUNT 109 X10'3 (140-440); RED BLOOD COUNT 3.76 X10'6 (4.70-6.10); RED CELL DISTRIBUTION WIDTH 15.6 % (11.5-14.5); WHITE BLOOD COUNT 4.5 X10'3 (4.5-11.0)
[2022-05-26 09:31] LABS: ALANINE AMINOTRANSFERASE 16 U/L (12-78); ALKALINE PHOSPHATASE 80 IU/L (46-116); ANION GAP 10 (8-16); BLOOD UREA NITROGEN 15 MG/DL (7-18); BUN/CREATININE RATIO 13.2 (5.4-32.0); CALCIUM 8.3 MG/DL (8.5-10.1); CHLORIDE 102 MMOL/L (99-107); CREATININE 1.14 MG/DL (0.60-1.10); POTASSIUM 4.1 MMOL/L (3.5-5.1); SODIUM 140 MMOL/L (135-145); TOTAL CARBON DIOXIDE 28.4 MMOL/L (24-32); eGFR 61 ML/MIN
[2022-05-26 09:43] LABS: ALBUMIN/GLOBULIN RATIO 1.3 (1.1-1.5); ASPARTATE AMINO TRANSFERASE 18 U/L (10-37); BILIRUBIN,TOTAL 3.5 MG/DL (0.1-1.0); GLUCOSE 203 MG/DL (70-104); TOTAL PROTEIN 7.2 G/DL (6.4-8.2)
[2022-05-26] MEDS ORDERED: furosemide 10 MG/1 ML 10ml inj IV ONE (10:05)
[2022-05-26] MEDS ORDERED: mag hydrox/Alum hydrox/simeth 30ml oral suspension PO PRN (11:25)
[2022-05-26] MEDS ORDERED: morphine 2 MG/ML inj. syringe IV PRN ×2 (11:25)
[2022-05-26] MEDS ORDERED: ondansetron/PF 4mg/2ml inj IV PRN (11:25)
[2022-05-26] MEDS ORDERED: magnesium hydroxide 30ml (MOM) UD suspension PO PRN (11:25)
[2022-05-26] MEDS ORDERED: ALOG12.5 PO (14:35)
[2022-05-26] MEDS ORDERED: FLO0.4C PO (14:35)
[2022-05-26] MEDS ORDERED: APIX5TAB3 PO (14:35)
[2022-05-26] MEDS ORDERED: SACU1TAB7 PO (14:35)
[2022-05-26] MEDS ORDERED: CARV-50 PO (14:35)
[2022-05-26] MEDS ORDERED: LOPE2TAB25 PO (14:35)
[2022-05-26] MEDS ORDERED: FURO40TA4 PO (14:35)
[2022-05-26] MEDS ORDERED: SPIR25TA5 PO (14:35)
[2022-05-26] MEDS ORDERED: VIT1CAPS46 PO (14:35)
--- NOTE | 2022-05-26 16:04 | NUR ---
Pt is awake ao3 seated in position of comfort. with no complaints of sob or cp.
[2022-05-26] MEDS ORDERED: albuterol 2.5 MG/3 ML nebule NEB PRN (19:05)
[2022-05-26] MEDS: docusate sod 100mg capsule PO SCH ×2 (20:00→21:07)
[2022-05-26] MEDS: furosemide 20 MG/2 ML vial IV SCH (21:07)
[2022-05-27] VITALS: BP 147/79
[2022-05-27 05:57] LABS: BASOPHILS % (AUTO) 0.5 % (0-1); EOSINOPHILS # (AUTO) 0.1 X10'3 (0-0.9); EOSINOPHILS % (AUTO) 2.2 % (0-6); HEMATOCRIT 34.2 % (42.0-52.0); HEMOGLOBIN 11.4 g/dl (14.0-17.9); LYMPHOCYTES # (AUTO) 0.8 X10'3 (1.1-4.8); LYMPHOCYTES % (AUTO) 18.4 % (21-51); MEAN CORPUSCULAR HEMOGLOBIN 31.9 PG (27.0-31.0); MEAN CORPUSCULAR HGB CONC 33.4 g/dL (33.0-36.5); MEAN CORPUSCULAR VOLUME 95.5 FL (78-98); MONOCYTES # (AUTO) 0.5 X10'3 (0-0.9); MONOCYTES % (AUTO) 11.5 % (2-12); NEUTROPHILS # (AUTO) 2.9 X10'3 (1.8-7.7); NEUTROPHILS % (AUTO) 67.4 % (42-75); PLATELET COUNT 91 X10'3 (140-440); RED BLOOD COUNT 3.59 X10'6 (4.70-6.10); RED CELL DISTRIBUTION WIDTH 15.4 % (11.5-14.5); WHITE BLOOD COUNT 4.3 X10'3 (4.5-11.0)
--- NOTE | 2022-05-27 06:20 | NUR ---
received report from alli victoria
[2022-05-27 06:29] LABS: ALBUMIN 3.7 G/DL (3.4-5.0); BLOOD UREA NITROGEN 16 MG/DL (7-18); TOTAL CARBON DIOXIDE 27.1 MMOL/L (24-32); eGFR 72 ML/MIN
[2022-05-27 06:38] LABS: ANION GAP 10 (8-16); CHLORIDE 101 MMOL/L (99-107); POTASSIUM 3.7 MMOL/L (3.5-5.1); SODIUM 138 MMOL/L (135-145)
[2022-05-27 06:47] LABS: GLUCOSE 137 MG/DL (70-104); HEMOGLOBIN A1C 5.9 % (4.5-6.2)
[2022-05-27 07:24] VITALS: BP 141/83
[2022-05-27] MEDS: docusate sod 100mg capsule PO SCH (07:44)
[2022-05-27] MEDS: furosemide 20 MG/2 ML vial IV SCH (07:46)
[2022-05-27] MEDS ORDERED: loperamide 2mg capsule PO PRN (08:05)
--- NOTE | 2022-05-27 11:02 | NUR ---
paged - Patient [id number] Escobar Esteves, pt eval with pt completed, can u please put in d/c orders, patient is anxious to d/c. thank you Alla Kenny LVN II @ [id number]
--- NOTE | 2022-05-27 11:02 | NUR ---
LN spoke with patient re: redness to his bilateral feet. Patient was stating he need amoxicillin upon discharge for redness to his feet. LN assessed both feet, erythema present on both feet, no edema, no warmth to touch, cool to touch, no pain indicated, area appears purplish/red possibly r/t poor vascular perfusion. MD notified, MD stated not indicative of cellulitis or infection, no ABX needed. LN spoke with patient and explained probable cause of redness/purplish discoloration and MD's response. Patient acknowledged understanding. Patient more concerned with discharge, MD paged re: pt huseyin completed and patient ready to d/c.
[2022-05-27 12:21] VITALS: BP 121/75
--- NOTE | 2022-05-27 13:46 | NUR ---
LN sent page to - @ [phone] - awaiting d/c orders, patient is threatening to go AMA within the hours. thank you, Alla Kenny LVN II @ [id number].
--- NOTE | 2022-05-27 13:50 | NUR ---
Pt/SO requested to speak with RD while in the room speaking with another pt. Pt endorses a good appetite though states he heavily dislikes his food. Bedside RN unavailable, d/w student RN recommendation to discontinue CHO controlled restriction d/t A1c 5.9% with overall liberalization to regular diet if physician agreeable in view of geriatric age. Pt documented with 100% PO intake of breakfast this morning though most of lunch tray not eaten (visible at bedside). Pt states he's unable to eat the lunch tray d/t not liking it or being able to cut the meat. Pt declines chopped food or any texture modification to assist with meals and denies any issues chewing or swallowing. RD discussed ONS however pt declined at this time d/t not being able to get it right away. Pt very fixated on wanting to discharge home and get outside food. Will continue to follow. Recommendations: 1) Liberalize to regular diet in view of A1c 5.9%, geriatric age, and pt disliking food on current diet order (heart healthy CHO controlled) 2) Monitor need for ONS. Pt initially accepting then refused once learning he can't get it right away (needs physician sign off in EMR) 3) Monitor need for texture modification (EC7 vs SB6)-pt declines at this time (05/27) Addendum: 05/27/22 at [address] Amended: Links added.
--- NOTE | 2022-05-27 15:26 | NUR ---
send a page to about pt going ama Addendum: 05/27/22 at 1527 by Machelle Pressley RN i sent a page to about pt going ama
--- NOTE | 2022-05-27 15:34 | NUR ---
pt signed AMA form after being explained to pt. Pt took all belongings with him and transported home with .
[2022-05-27] MEDS ORDERED: non-formulary drug (Vit C/E/Zn/Coppr/Lutein/Zeaxan (Preservision Areds 2 Softgel) 1 CAP) PO SCH (20:00)
[2022-05-27] MEDS ORDERED: carVEDilol 12.5mg tablet PO SCH (20:00)
[2022-05-27] MEDS ORDERED: sacubitril/valsartan 24mg-26mg tablet PO SCH (20:00)
[2022-05-27] MEDS ORDERED: apixaban 5mg tablet PO SCH (20:00)
[2022-05-27] MEDS ORDERED: tamsulosin 0.4mg capsule PO SCH (21:00)
[2022-05-28] MEDS ORDERED: spironolactone 25 MG tablet PO SCH (08:00)
== END 2022-05-27 15:33 | disposition left against medical advice (07) | DRG 291 ==
LOC: ER 07:12 → ED HOLD 11:26 → PCU 3S 23:38
PROVIDERS: ADMIT Internal Medicine; ATTEND Internal Medicine
DX: I11.0 Hypertensive heart disease with heart failure (principal); I50.23 Acute on chronic systolic (congestive) heart failure; I48.0 Paroxysmal atrial fibrillation; I42.0 Dilated cardiomyopathy; E11.9 Type 2 diabetes mellitus without complications; E78.5 Hyperlipidemia, unspecified; F43.10 Post-traumatic stress disorder, unspecified; I25.10 Atherosclerotic heart disease of native coronary artery without angina pectoris; J44.9 Chronic obstructive pulmonary disease, unspecified; F41.9 Anxiety disorder, unspecified; G89.29 Other chronic pain; I49.5 Sick sinus syndrome; N40.0 Benign prostatic hyperplasia without lower urinary tract symptoms; Z53.29 Procedure and treatment not carried out because of patient's decision for other reasons; Z79.01 Long term (current) use of anticoagulants; Z79.899 Other long term (current) drug therapy; I25.2 Old myocardial infarction; Z80.8 Family history of malignant neoplasm of other organs or systems; Z82.3 Family history of stroke; Z86.73 Personal history of transient ischemic attack (TIA), and cerebral infarction without residual deficits; Z95.810 Presence of automatic (implantable) cardiac defibrillator; Z88.8 Allergy status to other drugs, medicaments and biological substances
CPT/HCPCS: 36415; 71045; 80048; 80053; 83036; 83880; 84484; 85025; 87081; 93005; 93306; 94640; 94760; 96374; 97161; 97530; 99285; A4615; G0378; J1940